=== PATIENT | male | born 1965 | race African-American/Black ===

== ENCOUNTER 2024-06-14 16:39 | Emergency (ER) | payer OTHER ==
[~2024-06-14] VITALS: Ht 175.3 cm; Wt 77.1 kg
[2024-06-14 16:52] VITALS: BP 153/84; PULSE 63; RESP 16; TEMP 98.5; O2SAT 100
[2024-06-14 19:08] LABS: CHLORIDE 105 mEq/L (98-107)
[2024-06-14 19:09] LABS: CARBON DIOXIDE 30 mEq/L (21-32); POTASSIUM 3.1 mEq/L (3.5-5.1); SODIUM 144 mEq/L (136-145)
[2024-06-14 19:10] LABS: CALCIUM 9.4 mg/dL (8.7-10.4)
[2024-06-14 19:14] LABS: CREATININE 0.9 mg/dL (0.6-1.3)
[2024-06-14 19:15] LABS: GLUCOSE 109 mg/dL (70-105); TROPONIN I HIGH SENSITIVITY 5 ng/L (3.0-53); UREA NITROGEN BLOOD 12 mg/dL (9-23)
[2024-06-14 19:16] LABS: ALANINE AMINOTRANSFERASE 8 IU/L (10-49); ALBUMIN 4.3 g/dL (3.2-4.8); ASPARTATE AMINOTRANSFERASE 12 IU/L (<34)
[2024-06-14 19:17] LABS: BILIRUBIN DIRECT 0.3 mg/dL (<=3.0); BILIRUBIN TOTAL 0.7 mg/dL (0.1-1.0); PROTEIN TOTAL 6.9 g/dL (6.0-8.3)
[2024-06-14 19:40] LABS: BASOPHILS % 1.5 % (0.0-2.0); EOSINOPHILS % 0.5 % (0.0-5.0); LYMPHOCYTES % 17.2 % (20.0-50.0); MEAN CORPUSCULAR HEMOGLOBIN 15.5 pg (28.0-32.0); MEAN CORPUSCULAR HGB CONC 27.3 g/dL (31.0-37.0); MEAN CORPUSCULAR VOLUME 56.8 fL (80.0-94.0); MEAN PLATELET VOLUME 8.5 fl (7.4-10.4); MONOCYTES % 8.8 % (2.0-8.0); PLATELET 395 x1000/uL (130-400); RED BLOOD CELL COUNT 4.39 mill/uL (4.7-6.1); RED CELL DISTRIBUTION WIDTH 23.1 % (11.6-14.6); WHITE BLOOD COUNT 6.5 x1000/uL (4.5-11.0)
[2024-06-14 20:08] LABS: ADD RBC MORPHOLOGY YES; DIFFERENTIAL COMMENT 1
[2024-06-14 20:09] LABS: HEMOGLOBIN. 6.8 g/dL (14.0-18.0)
[2024-06-14] MEDS: POTASSIUM CHLORIDE 20MEQ TABLET SR PO ONE (20:31)
[2024-06-14 20:51] LABS: ANISOCYTOSIS 2+
[2024-06-14 20:52] LABS: HYPOCHROMASIA 2+; MICROCYTOSIS 1+; PLATELET ESTIMATE NORMAL; SICKLE CELLS 1+
== END 2024-06-14 21:38 | disposition left against medical advice (07) ==
LOC: ER 16:39
DX: E87.6 Hypokalemia (principal); D64.9 Anemia, unspecified; F43.9 Reaction to severe stress, unspecified; R00.2 Palpitations; E11.9 Type 2 diabetes mellitus without complications; I10 Essential (primary) hypertension; E78.00 Pure hypercholesterolemia, unspecified
CPT/HCPCS: 36415; 71045; 80048; 80076; 82962; 84484; 85025; 93005; 99285